=== PATIENT | female | born 1965 | race Caucasian/White ===

== ENCOUNTER 2020-11-19 21:34 | Emergency (ER) | payer BC ==
--- NOTE | 2020-11-19 22:43 | EDM.PDOC ---
ED HPI GENERAL MEDICAL PROBLEM - General Chief Complaint: Headache Stated Complaint: HEADACHES Time Seen by Provider: 11/19/20 22:31 Source of Information: Reports: Patient History Limitations: Reports: No Limitations - History of Present Illness INITIAL COMMENTS - FREE TEXT/NARRATIVE: Debbie is a 55-year-old female from [facility] who presents to the ED for evaluation of headache. She apparently hit her head on the door around 1800 hrs. tonight causing the headache to worsen. The patient reports that her symptoms started about 6 months ago when she had a concussion. During her recovery time from this event she was in the process of moving and had a second concussion when a crystal vase fell off a shelf striking her in the head causing a large laceration of her scalp. After this occurred she was diagnosed with postconcussive syndrome. Since then she has had increasing frequency of headaches, disequilibrium, perseveration, and some difficulty with concentration and memory. She has had a several CTs of the head after each episode but has not seen neurologist, nor has she had an MRI of the brain. In addition to these concussions, the patient also suffers from fibromyalgia. She is currently up here vacationing for the next week. Today she had worsening of her headache after she hit the back of her head on an open cabinet door. She denies any visi on changes, numbness or tingling, weakness, nausea or vomiting. She is concerned about the increasing disequilibrium and memory issues. - Related Data Allergies Allergy/AdvReac Type Severity Reaction Status Date / Time acetaminophen [From Tylenol] Allergy Vomiting Verified 11/19/20 22:15 erythromycin base Allergy Vomiting Verified 11/19/20 22:15 Home Meds: Home Meds Gabapentin [Neurontin] 1 tab PO TID 11/19/20 [History] Ketamine HCl 1 tab PO QID PRN 11/19/20 [History] Metoprolol Succinate 1 tab PO DAILY 11/19/20 [History] carisoprodoL [Soma] 1 tab PO DAILY 11/19/20 [History] lisinopriL [Lisinopril] 1 tab PO DAILY 11/19/20 [History] Past Medical History - Past Surgical History HEENT Surgical History: Reports: Tonsillectomy Social & Family History - Tobacco Use Tobacco Use Status *Q: Never Tobacco User ED ROS GENERAL - Review of Systems Review Of Systems: See Below Constitutional: Reports: No Symptoms HEENT: Reports: No Symptoms Respiratory: Reports: No Symptoms Cardiovascular: Reports: No Symptoms Endocrine: Reports: No Symptoms GI/Abdominal: Reports: No Symptoms : Reports: No Symptoms Musculoskeletal: Reports: Other (Patient has a history of fibromyalgia) Skin: Reports: No Symptoms Neurological: Reports: Headache, Difficulty Walking (Due to disequilibrium), Other (Memory issues and perseveration) Psychiatric: Reports: Anxiety Hematologic/Lymphatic: Reports: No Symptoms Immunologic: Reports: No Symptoms ED EXAM, HEAD INJURY - Physical Exam Exam: See Below Exam Limited By: No Limitations General Appearance: Alert, No Apparent Distress Head: Atraumatic, Normocephalic Nexus Criteria: No: Posterior, Midline Cervical Tenderness, Evidence of Intoxication, Altered Level of Consciousness, Focal Neurological Deficit, Painful Distraction Injuries Eyes: Bilateral Eye: EOMI, PERRL Nose: Normal Inspection Throat/Mouth: Normal Inspection, Normal Lips, Normal Oropharynx, Normal Voice, No Airway Compromise Neck: Non-Tender, Full Range of Motion, Normal Alignment, Normal Inspection Respiratory: No Respiratory Distress, Lungs Clear, Normal Breath Sounds Cardiovascular: Normal Peripheral Pulses, Regular Rate, Rhythm, No Murmur GI/Abdominal Exam: Normal Bowel Sounds, Soft, Non-Tender Extremities: Normal Inspection, Normal Range of Motion Neurologic: proposal writer II-XII nml As Tested, No Motor/Sensory Deficits, Alert, Normal Mood/Affect, Oriented x 3 - Gloria Coma Score Best Eye Response ([place]): (4) Open Spontaneously Best Verbal Response ([place]): (5) Oriented Best Motor Response ([place]): (6) Obeys Commands Gloria Total: 15 Course - Vital Signs Last Recorded V/S: Last Vital Signs Temp 36.4 C 11/19/20 22:30 Pulse 85 11/19/20 22:30 Resp 14 11/19/20 22:30 BP 137/81 11/19/20 22:30 Pulse Ox 98 11/19/20 22:30 - Orders/Labs/Meds Orders: Active Orders 24 hr Category Date Time Status Sodium Chloride 0.9% [Normal Saline] 1,000 ml Med 11/19/20 23:00 Active IV ASDIRECTED Sodium Chloride 0.9% [Saline Flush] Med 11/19/20 22:55 Active 10 ml FLUSH ASDIRECTED PRN Saline Lock Insert [OM.PC] Routine Oth 11/19/20 22:55 Ordered Medication Orders Sodium Chloride (Normal Saline) 1,000 mls @ 999 mls/hr IV ASDIRECTED MING Last Admin: 11/19/20 23:29 Dose: 999 mls/hr Documented by: QASIM Sodium Chloride (Sodium Chloride 0.9% 10 Ml Syringe) 10 ml FLUSH ASDIRECTED PRN PRN Reason: Keep Vein Open Last Admin: 11/19/20 23:28 Dose: 10 ml Documented by: QASIM Meds: Medications Generic Name Dose Route Start Last Admin Trade Name Frejulia PRN Reason Stop Dose Admin Sodium Chloride 1,000 mls @ 999 mls/hr 11/19/20 23:00 11/19/20 23:29 Normal Saline IV 999 mls/hr ASDIRECTED MING Administration Sodium Chloride 10 ml 11/19/20 22:55 11/19/20 23:28 Sodium Chloride 0.9% 10 Ml Syringe FLUSH 10 ml ASDIRECTED PRN Administration Keep Vein Open Discontinued Medications Generic Name Dose Route Start Last Admin Trade Name Arlyn PRN Reason Stop Dose Admin Dexamethasone 10 mg 11/19/20 22:55 11/19/20 23:28 Dexamethasone 4 Mg/Ml Sdv IVPUSH 11/19/20 22:56 10 mg ONETIME ONE Administration Dexamethasone Confirm 11/19/20 23:34 Dexamethasone 4 Mg/Ml Sdv Administered 11/19/20 23:35 Dose 8 mg .ROUTE .STK-MED ONE Diphenhydramine HCl 50 mg 11/19/20 22:55 11/19/20 23:27 Diphenhydramine 50 Mg/Ml Sdv IVPUSH 11/19/20 22:56 50 mg ONETIME ONE Administration Ketorolac Tromethamine 30 mg 11/19/20 22:55 11/19/20 23:28 Ketorolac 30 Mg/Ml Sdv IVPUSH 11/19/20 22:56 30 mg ONETIME ONE Administration Prochlorperazine Edisylate 10 mg 11/19/20 22:55 11/19/20 23:27 Prochlorperazine 10 Mg/2 Ml Sdv IVPUSH 11/19/20 22:56 10 mg ONETIME ONE Administration - Radiology Interpretation Free Text/Narrative:: I reviewed the images from the CT of the head without contrast as well as the report. The report is as follows: IMPRESSION: Unremarkable noncontrast head CT. Please note that all CT scans at this facility use dose modulation, iterative reconstruction, and/or weight-based dosing when appropriate to reduce radiation dose to as low as reasonably achievable. Dictated by Aziza Ervin MD @ 11/20/2020 12:40:50 AM - Re-Assessments/Exams Free Text/Narrative Re-Assessment/Exam: 11/20/20 01:09 patient has had significant improvement in her symptoms after receiving a liter of IV normal saline, Toradol 30 mg IV push, Compazine 10 mg IV push, diphenhydramine 50 mg IV push and dexamethasone 10 mg IV push. At this time she is resting comfortably. CT of the head without contrast did not demonstrate any acute abnormalities. We will discharge the patient home to sleep. I did recommend that she follow-up with her primary provider when she returns to [place] where he can arrange for neurology consult and MRI. Departure - Departure Time of Disposition: 01:10 Disposition: Home, Self-Care 01 Clinical Impression: Closed head injury Qualifiers: Encounter type: initial encounter Qualified Code(s): S09.90XA - Unspecified injury of head, initial encounter Headache Qualifiers: Headache type: unspecified Headache chronicity pattern: acute headache Intractability: intractable Qualified Code(s): R51.9 - Headache, unspecified - Discharge Information Instructions: General Headache Without Cause, Head Injury, Adult, [id number] Referrals: PCP,None [Primary Care Provider] - Forms: ED Department Discharge Care Plan Goals: I am glad that you are feeling better. I recommend that she go home and sleep. When returning to [place] I recommend meeting with your primary care provider to arrange for evaluation by a neurologist and perhaps an MRI of the brain. Sepsis Event Note (ED) - Evaluation Sepsis Screening Result: No Definite Risk - Focused Exam Vital Signs: Vital Signs Temp Pulse Resp BP Pulse Ox 11/19/20 22:30 36.4 C 85 14 137/81 98 - Problem List & Annotations (1) Closed head injury SNOMED Code(s): 296512614309 Code(s): S09.90XA - UNSPECIFIED INJURY OF HEAD, INITIAL ENCOUNTER Status: Acute Priority: Medium Current Visit: Yes Qualifiers: Encounter type: initial encounter Qualified Code(s): S09.90XA - Unspecified injury of head, initial encounter (2) Headache SNOMED Code(s): 51791539 Code(s): R51.9 - HEADACHE, UNSPECIFIED Status: Acute Priority: Medium Current Visit: Yes Qualifiers: Headache type: unspecified Headache chronicity pattern: acute headache Intractability: intractable Qualified Code(s): R51.9 - Headache, unspecified - Problem List Review Problem List Initiated/Reviewed/Updated: Yes - My Orders Last 24 Hours: My Active Orders 11/19/20 22:55 Sodium Chloride 0.9% [Saline Flush] 10 ml FLUSH ASDIRECTED PRN Saline Lock Insert [OM.PC] Routine 11/19/20 23:00 Sodium Chloride 0.9% [Normal Saline] 1,000 ml IV ASDIRECTED - Assessment/Plan Last 24 Hours: My Active Orders 11/19/20 22:55 Sodium Chloride 0.9% [Saline Flush] 10 ml FLUSH ASDIRECTED PRN Saline Lock Insert [OM.PC] Routine 11/19/20 23:00 Sodium Chloride 0.9% [Normal Saline] 1,000 ml IV ASDIRECTED
[2020-11-19] MEDS ORDERED: Sodium Chloride 0.9% 10 ML Syringe FLUSH PRN (22:55)
[2020-11-19] MEDS ORDERED: Prochlorperazine 10 MG/2 ML SDV IVPUSH ONE (22:55)
[2020-11-19] MEDS ORDERED: Dexamethasone 4 MG/ML SDV IVPUSH ONE (22:55)
[2020-11-19] MEDS ORDERED: Ketorolac 30 MG/ML SDV IVPUSH ONE (22:55)
[2020-11-19] MEDS ORDERED: diphenhydrAMINE 50 MG/ML SDV IVPUSH ONE (22:55)
[2020-11-19] MEDS ORDERED: Sodium Chloride 0.9% 1,000 ML IV SCH (23:00)
[2020-11-19] MEDS ORDERED: Dexamethasone 4 MG/ML SDV ONE (23:34)
--- NOTE | 2020-11-20 00:41 | CRLCT ---
For Patients: As a result of the Century Cures Act, medical imaging exams and procedure reports are released immediately into your electronic medical record. You may view this report before your referring provider. If you have questions, please contact your health care provider. INDICATION: Headache after head injury TECHNIQUE: CT head without contrast. COMPARISON: None FINDINGS: CSF spaces: Within normal limits for age. Brain parenchyma: The jeffries-white differentiation is normal. No sign of mass, hemorrhage, or midline shift. Skull base and calvarium: The visualized paranasal sinuses and mastoid air cells demonstrate no acute or significant findings. The visualized orbits are grossly unremarkable. No skull fractures. IMPRESSION: Unremarkable noncontrast head CT. Please note that all CT scans at this facility use dose modulation, iterative reconstruction, and/or weight-based dosing when appropriate to reduce radiation dose to as low as reasonably achievable. Dictated by Aziza Ervin MD @ 11/20/2020 12:40:50 AM (Electronically Signed)
== END 2020-11-20 06:19 | disposition home or self-care (01) ==
LOC: JP.ED 21:34
DX: S09.90XA Unspecified injury of head, initial encounter (principal); Z88.1 Allergy status to other antibiotic agents; Z88.8 Allergy status to other drugs, medicaments and biological substances; Z79.899 Other long term (current) drug therapy; W22.09XA Striking against other stationary object, initial encounter
CPT/HCPCS: 70450; 96374; 96375; 99283; J0780; J1100; J1200; J1885; J7030